=== PATIENT | female | born 1970 | race Caucasian/White ===

== ENCOUNTER → 2022-10-08 | Outpatient (CLI) | payer OTHER ==
--- NOTE | 2022-10-08 20:44 | MR ---
EXAMINATION TYPE: MR knee LT wo con DATE OF EXAM: 10/08/2022 COMPARISON: None HISTORY: Left knee pain & swelling due to trip and fall at work. TECHNIQUE: Multiplanar, multisequence images of the knee is performed without IV contrast. FINDINGS: MEDIAL MENISCUS: Anterior and posterior horns are intact without tear. LATERAL MENISCUS: Anterior and posterior horns are intact without tear. CRUCIATE LIGAMENTS: The anterior and posterior cruciate ligaments are intact and unremarkable. COLLATERAL LIGAMENTS: The medial collateral ligament and lateral collateral ligament complex are inta ct and unremarkable. EXTENSOR MECHANISM: Visualized quadriceps and patellar tendons are intact. EFFUSION: No significant suprapatellar joint effusion. POPLITEAL CYST: No popliteal/berumen cyst. TRICOMPARTMENT SPACES: Mild narrowing medial tibiofemoral joint space. CARTILAGE: Intact BONE MARROW SIGNAL: No focal abnormal marrow signal is appreciated. OTHER: Prepatellar soft tissue swelling. Septated ganglion cyst within the region of Hoffa's fat pad medially measures 1.8 cm in length and 4 mm in craniocaudal dimension IMPRESSION: 1. Complex ganglion cyst within the region of Hoffa's fat pad medially. 2. Prepatellar soft tissue swelling
== END | disposition home or self-care (01) ==
LOC: RADMRIMAIN 19:16
PROVIDERS: ATTEND Orthopaedic Surgery
DX: M67.462 Ganglion, left knee (principal); M25.562 Pain in left knee; M79.89 Other specified soft tissue disorders

== ENCOUNTER → 2022-12-03 | Outpatient (CLI) | payer OTHER ==
[2022-12-03 16:06] LABS: Basophils # (A) 0.02 X 10*3/uL; Basophils % (A) 0.4 %; Eosinophils # (A) 0.13 X 10*3/uL; Eosinophils % (A) 2.3 %; HCT 43.9 %; HGB 13.7 d/dL; Lymphocytes # (A) 2.72 X 10*3/uL; Lymphocytes % (A) 47.7 %; MCH 29.1 pg; MCHC 31.2 d/dL; MCV 93.2 FL; Mean Platelet Volume 10.8 FL; Monocytes # (A) 0.35 X 10*3/uL; Monocytes % (A) 6.1 %; NRBC Per 100 WBC 0 X 10*3/uL; Neutrophils # (A) 2.47 X 10*3/uL; Neutrophils % (A) 43.3 %; Platelet Count 213 X 10*3/uL; RBC 4.71 X 10*6/uL; RDW 14.2 %
== END | disposition home or self-care (01) ==
LOC: LABPAT 07:50
PROVIDERS: ATTEND Orthopaedic Surgery
DX: Z01.818 Encounter for other preprocedural examination (principal); M23.92 Unspecified internal derangement of left knee
CPT/HCPCS: 85025; 93005

== ENCOUNTER 2022-12-13 12:03 | Day surgery (SDC) | payer BC, OTHER ==
[2022-12-11 08:42] VITALS: BMI 31.1
--- NOTE | 2022-12-12 13:48 | HP ---
HISTORY AND PHYSICAL DATE OF SCHEDULED SURGERY: 12/13/2022 HISTORY OF PRESENT ILLNESS: Deepali Ricardo is a 52-year-old patient seen with progressive left knee pain. We discussed options for treatment, post left knee arthroscopy. Consent was obtained. PAST MEDICAL HISTORY: Hyperlipidemia, fvz-syvqtjv-ajdehyide diabetes. PAST SURGICAL HISTORY: Knee arthroscopy, laparoscopy, shoulder arthroscopy. DAILY MEDICATIONS: 1. Metformin. 2. Munjaro. 3. Rosuvastatin. 4. Aleve. ALLERGIES: Jardiance and Lisinopril SOCIAL HISTORY: She denies tobacco use. PHYSICAL EVALUATION OF LEFT KNEE: Range of motion 0 to 120 degrees. Mild effusion. She is tender on the medial and lateral joint line. She has a positive medial Gustabo's and a positive lateral Gustabo's. Ligaments stable. Hip rotation without pain. Distal neurovascular exam is intact. RADIOGRAPHS: Radiographs of the left knee revealed mild osteoarthritis, MRI left knee revealed a ganglion cyst. IMPRESSION: 1. Internal derangement of left knee with meniscal tear versus osteochondral tear. 2. Nit-kboteti-idyhajwwc diabetes. 3. Hyperlipidemia. PLAN: Left knee arthroscopy with partial meniscectomy versus chondroplasty and debridement. MMODL / IJN: [id number] /
[~2022-12-13 12:03] MED LIST: DEXAMETHASONE SOD PHOSPHATE 4 MG/ML 1 ML VIAL IV ONE; HYDROmorphone 0.5 MG/0.5 ML SYRINGE IVP PRN; LACTATED RINGERS 1,000 ML IV SCH; ONDANSETRON 4 MG/2 ML VIAL IVP ONE
[2022-12-13 12:39] LABS: Glucose,Whole Blood 117 mg/dL (70-110)
[2022-12-13] MEDS ORDERED: BUPIVACAINE (PF) 0.25% 30 ML VIAL SQ ONE ×2 (13:45→14:18)
[2022-12-13] MEDS ORDERED: LIDOCAINE 2% INJ 20 MG/ML (2 ML VIAL) ONE (13:47)
[2022-12-13] MEDS ORDERED: KETOROLAC 15 MG/ML 1 ML VIAL ONE (13:47)
[2022-12-13] MEDS ORDERED: PROPOFOL 10 MG/ML 20 ML VIAL IV ONE (13:47)
[2022-12-13] MEDS ORDERED: fentaNYL (PF) 50 MCG/ML 2 ML AMP ONE (13:47)
[2022-12-13] MEDS ORDERED: MIDAZOLAM 2 MG/2 ML VIAL ONE (13:47)
[2022-12-13] MEDS ORDERED: LACTATED RINGERS 1,000 ML IV ONE (14:20)
--- NOTE | 2022-12-13 14:27 | P.OP ---
Date of Procedure: 12/13/22 Preoperative Diagnosis: Internal derangement left knee Postoperative Diagnosis: 1. Tear medial meniscus left knee 2. Reactive synovitis medial, lateral and suprapatellar compartments left knee Procedure(s) Performed: 1. Arthroscopic partial medial meniscectomy left knee 2. Arthroscopic partial synovectomy medial, lateral and suprapatellar compartments left knee Anesthesia: RIMAA, local Surgeon: Slim Redding Estimated Blood Loss (ml): 7 Pathology: none sent Condition: stable Disposition: PACU Indications for Procedure: 52-year-old patient who was seen with progressive left knee pain. We discussed options for treatment, she elected to proceed with arthroscopy. Operative Findings: See description of procedure Description of Procedure: Patient was taken to the operative suite. Patient underwent a general anesth etic by the department of anesthesia. Patient was given preoperative antibiotics. The left lower extremity was placed in a well-padded arthroscopic leg edwards. The left leg was prepped and draped in the normal sterile orthopedic fashion. A lateral parapatellar and suprapatellar incision was made. Trochars were inserted. Arthroscopy was initiated. Suprapatellar pouch revealed diffuse thick reactive synovitis. The patellofemoral joint appeared to articulate congruently. There was grade 1 chondromalacia of the patella without significant osteochondral tears.. The scope was guided into the medial gutter. No loose bodies or plica were identified. The scope was then guided into the medial compartment. A medial parapatellar incision was made. Trocar inserted followed by probe. There was radial tear posterior horn medial meniscus. There were some grade 2 chondromalacia changes along the medial femoral condyle without significant tearing. There was some thick reactive synovitis anteriorly. I performed a partial medial meniscectomy getting down to stable meniscal tissue. I performed a partial synovectomy decompressing the reactive synovitis. The residual meniscus was probed and was found to be stable. There was good decompression of the synovitis. Scope and probe were then guided into the intercondylar notch. Cruciates were identified, probed and found to be stable. The scope and probe were then guided into lateral compartment. Lateral meniscus was probed and was found to be stable. There was no substantial chondromalacia of the lateral compartment. There was some thick reactive synovitis anteriorly. I introduced the motorized shaver and performed a partial synovectomy. Shaver was now removed. There was good decompression of the synovitis. The scope was in guided back into the suprapatellar compartment. I introduced the motorized shaver into the super patellar compartment. I performed a partial synovectomy decompressing the thick reactive synovitis. The shaver was now removed. There was good decompression of the synovitis. I now took one more look around the entire knee, no residual debris. Instruments were now removed from the joint. The joint was infiltrated with .25% Marcaine. Steri-Strips were applied to the portal sites. Sterile dressings were applied. The patient was placed into a KAI hose. No tourniquet was utilized. The patient was awakened, transferred to a bed and taken to recovery stable satisfactory condition.
[2022-12-13 14:29] VITALS: TEMP 97
[2022-12-13 14:53] LABS: Glucose,Whole Blood 138 mg/dL (70-110)
[2022-12-13] MEDS ORDERED: HYDROmorphone 0.5 MG/0.5 ML SYRINGE IVP ONE (14:56)
[2022-12-13] MEDS ORDERED: KETOROLAC 15 MG/ML 1 ML VIAL IVP ONE (14:58)
[2022-12-13 15:19] VITALS: RESP 18
[2022-12-13 15:42] VITALS: BP 122/79; PULSE 85
== END 2022-12-13 16:17 | disposition home or self-care (01) ==
LOC: OR 12:03
PROVIDERS: ATTEND Orthopaedic Surgery
DX: S83.242A Other tear of medial meniscus, current injury, left knee, initial encounter (principal); M65.862 Other synovitis and tenosynovitis, left lower leg; I10 Essential (primary) hypertension; Z79.4 Long term (current) use of insulin; Z79.899 Other long term (current) drug therapy; X58.XXXA Exposure to other specified factors, initial encounter
CPT/HCPCS: 29881; J2250; J1100; J0690; J2405; J3010; J1885; J2704; J1170; J2001

== ENCOUNTER → 2023-11-15 | Outpatient (CLI) | payer BC ==
--- NOTE | 2023-11-16 02:14 | MR ---
EXAMINATION TYPE: MR shoulder LT wo con DATE OF EXAM: 11/15/2023 COMPARISON: MRI left shoulder 2009. Outside left shoulder x-ray November 05, 2023 HISTORY: Left shoulder pain with difficulty raising arm overhead for 6 weeks, history of surgery 2008. TECHNIQUE: Multiplanar, multisequence imaging of the left shoulder is performed without contrast. FINDINGS: Rotator Cuff: Some increased signal in the infraspinatus tendon. More prominent increased signal surr ounding fluid in the supraspinatus tendon. Heterogeneity and increased signal in the subscapularis te ndon. Rotator cuff muscle bulk is preserved. Acromioclavicular Joint: Moderate narrowing at the acromioclavicular joint with mild/moderate capsula r hypertrophy. Subchondral cystic change. Glenohumeral Joint: Small joint effusion extending anteriorly. No significant spurring. Labrum: The labrum appears grossly intact given limitation of non-arthrogram study. Biceps Tendon: The long head of biceps is in normal location within bicipital groove. Bone marrow signal: Significant area of heterogeneous increased T2 signal inferior medial humeral hea d anteriorly over roughly 2.5 cm area. Other: No additional significant abnormality is appreciated. IMPRESSION: 1. Focal abnormal bone marrow edema/osseous contusion injury anterior inferior medial humeral head ab utting the anterior glenoid. 2. Tendinosis/partial tearing of the subscapularis tendon. 3. Mild tendinosis of the infraspinatus tendon. Slightly more prominent tendinosis of the supraspinat us tendon.
== END | disposition home or self-care (01) ==
LOC: RADMRIMAIN 19:01
PROVIDERS: ATTEND Orthopaedic Surgery
DX: M75.112 Incomplete rotator cuff tear or rupture of left shoulder, not specified as traumatic (principal)

== ENCOUNTER 2023-12-19 07:27 | Day surgery (SDC) | payer BC ==
[2023-12-17 12:10] VITALS: BMI 31.2
--- NOTE | 2023-12-18 22:55 | HP ---
HISTORY AND PHYSICAL Surgery is scheduled for 12/19/2023. HISTORY OF PRESENT ILLNESS: Deepali Ricardo is a 53-year-old patient, seen with progressive left shoulder pain. We discussed options regarding treatment. She elected to proceed with arthroscopy. Consent was obtained. PAST MEDICAL HISTORY: Khy-teooegt-knxlahbtv diabetes, gastroesophageal reflux disease, hyperlipidemia. PAST SURGICAL HISTORY: Shoulder arthroscopy, knee arthroscopy, laparoscopy. DAILY MEDICATIONS: 1. Metformin. 2. Rosuvastatin. 3. Naprosyn. 4. Multivitamin. ALLERGIES: Jardiance, lisinopril. SOCIAL HISTORY: She denies tobacco use. PHYSICAL EVALUATION OF THE LEFT SHOULDER: Flexion is 130 degrees. Abduction is 90 degrees. External rotation is 40 degrees with pain and weakness. Tenderness along the anterolateral acromion rotator cuff insertion site. Impingement is positive at 80 degrees. Drop-arm sign is positive. Distal neurovascular exam is intact. IMAGING STUDIES: Radiographs of the left shoulder revealed a type 2 acromion along with acromioclavicular joint osteoarthritis. MRI of left shoulder revealed a partial rotator cuff tendon tear along with acromioclavicular joint osteoarthritis. IMPRESSION: 1. Left shoulder impingement with partial rotator cuff tear. 2. Left shoulder acromioclavicular joint osteoarthritis. 3. Hyperlipidemia. 4. Lfq-hpexfjj-qgopistiy diabetes. PLAN: Left shoulder arthroscopy with subacromial decompression, arthroscopic rotator cuff repair, Twan procedure, and debridement. MMODL / IJN: [id number] /
[~2023-12-19 07:27] MED LIST changes: -DEXAMETHASONE SOD PHOSPHATE 4 MG/ML 1 ML VIAL IV ONE; -LACTATED RINGERS 1,000 ML IV SCH; +LIDOCAINE 1% (10MG/ML) FOR IV START INTRADERMA PRN; -ONDANSETRON 4 MG/2 ML VIAL IVP ONE; +SCOPOLAMINE 1 MG/72 HR PATCH TRANSDERM ONE; +droPERidol 5 MG/2 ML VIAL IVP ONE
[2023-12-19] MEDS: LACTATED RINGERS 1,000 ML IV SCH (08:20)
[2023-12-19] MEDS: DEXAMETHASONE SOD PHOSPHATE 4 MG/ML 1 ML VIAL IV ONE (08:20)
[2023-12-19 08:21] LABS: Glucose,Whole Blood 124 mg/dL (70-110)
[2023-12-19] MEDS: ONDANSETRON 4 MG/2 ML VIAL IVP ONE (08:21)
[2023-12-19] MEDS: IV FLUID CONTINUATION 1,000 ML IV ONE (08:24)
[2023-12-19] MEDS: MIDAZOLAM 2 MG/2 ML VIAL IVP ONE (08:36)
[2023-12-19] MEDS ORDERED: SUCCINYLCHOLINE CHLORIDE 200 MG/10 ML VIAL IV ONE (09:06)
[2023-12-19] MEDS ORDERED: ROCURONIUM 10 MG/ML (5 ML VIAL) IV ONE (09:06)
[2023-12-19] MEDS ORDERED: NEOSTIGMINE 1 MG/ML 10 ML VIAL ONE (09:06)
[2023-12-19] MEDS ORDERED: GLYCOPYRROLATE 0.2 MG/ML 2 ML VIAL ONE (09:06)
[2023-12-19] MEDS ORDERED: LIDOCAINE 1% INJ 10MG/ML (20 ML MDV) ONE (09:06)
[2023-12-19] MEDS ORDERED: PROPOFOL 10 MG/ML 20 ML VIAL IV ONE (09:06)
[2023-12-19] MEDS ORDERED: fentaNYL (PF) 50 MCG/ML 2 ML AMP ONE (09:06)
[2023-12-19] MEDS ORDERED: ROPIVACAINE 5 MG/ML 30 ML VIAL ONE (09:06)
[2023-12-19 10:44] VITALS: TEMP 98.4
--- NOTE | 2023-12-19 10:47 | P.OP ---
Date of Procedure: 12/19/23 Preoperative Diagnosis: Left shoulder impingement Postoperative Diagnosis: 1. Left shoulder rotator cuff tear 2. Left shoulder impingement 3. Left shoulder bicipital tendinitis 4. Left shoulder acromioclavicular joint osteoarthritis 5. Left shoulder superficial labral tear Procedure(s) Performed: 1. Left shoulder arthroscopic rotator cuff repair 2. Left shoulder arthroscopic subacromial decompression 3. Left shoulder arthroscopic biceps tenodesis 4. Left shoulder arthroscopic Twan procedure 5. Left shoulder arthroscopic debridement labral tear Implants: 1Arthrex 5.5 swivel lock anchor 1Arthrex 4.75 swivel lock anchor Anesthesia: GETA, regional (Interscalene block) Surgeon: Slim Redding Certified Nurse Aide #1: Lawrence Mack Estimated Blood Loss (ml): 8 Pathology: none sent Condition: stable Disposition: PACU Indications for Procedure: 53-year-old patient seen with progressive left shoulder pain. After having treatment options discussed, she elected to proceed with arthroscopy. Operative Findings: See description of procedure Description of Procedure: Patient underwent an interscalene block by department of anesthesia. The patient was then taken to the operative suite. The patient underwent a general anesthetic by the department of anesthesia. The patient was placed into a lateral position and secured. There was appropriate padding of the bony prominence. Left shoulder was then prepped and draped in normal sterile orthopedic fashion. We placed the extremity in 10 pounds of longitudinal traction. A posterior incision was now made for a posterior working portal site. The trocar and cannula were inserted into the glenohumeral joint. Arthroscopy was initiated. Spinal needle was now inserted anteriorly, to ascertain the anterior working portal site. An incision was now made in that area, a trocar was inserted followed by a probe. There was hyperemia involving long head biceps tendon with some mild tearing. There was some fraying/tearing of the superior labrum. There was no chondromalacia present. I debrided the superficial fraying of labrum with a motorized shaver. I decided to proceed with arthroscopic biceps tenodesis. I introduced the cannula through the anterior portal site. I passed a loop and tack type stitch to the biceps tendon. I now released the biceps tendon from the superior labral anchor. I now with the assistance of a Herrera Mack PA punch hole at the interval for insertion of an anchor. The suture line was passed through the eyelet of an Arthrex 4.75 swivel lock anchor. I placed the eyelet into the prepunched hole. I held in position while Herrera CHRISTIANSON tensioned the suture and deployed the anchor with good fixation noted. The residual suture limb was now clipped. We had a stable appearing biceps tenodesis. Instruments were now removed from the glenohumeral joint. Utilizing the posterior working portal site, the trocar and cannula were inserted into the subacromial space. Arthroscopy initiated. I made an incision 2 fingerbreadths lateral to the acromion. I introduced my trocar followed by my ArthroCare ablator. I now began ablating thick subacromial bursal tissue, which exposed the undersurface of the anterior acromion. There was diminished subacromial space. There was an acromial spur present.. A motorized bur was introduced and a subacromial decompression was performed. I also excised some osteophytes off the inferior aspect of the distal clavicle. The AC joint was visualized and noted to be fairly arthritic. The motorized bur was introduced in the anterior portal site and a Twan procedure was performed without difficulty removing 8 mm off the distal clavicle, decompressing the AC joint nicely. I turned my attention to the rotator cuff. There was a 1 cm rotator cuff tear. I debrided the margins getting down to stable tendon tissue. I abraded the footprint with a motorized bur. With the assistance of Herrera CHRISTIANSON I passed 2 everted mattress sutures through good bites of rotator cuff tendon. I now punched a hole at the footprint for insertion of an anchor. All 4 limbs of suture were passed through the eyelet of a Arthrex 5.5 swivel lock anchor. I placed the eyelet into our preplanned hole. I held in position while Herrera CHRISTIANSON tensioned the suture and deployed the anchor with good fixation noted. All residual suture limbs were now clipped. We had good compression of the tendon along the entire footprint. Instruments now removed from the portal sites. All portal sites were approximated with nylon suture. Sterile dressings were applied followed by a shoulder sling. Lawrence CHRISTIANSON assisted in all aspects this case. The patient was awakened, transferred to a bed, and taken to recovery in stable condition.
[2023-12-19 11:46] VITALS: RESP 20
[2023-12-19 12:45] VITALS: BP 118/72; PULSE 80
--- NOTE | 2023-12-19 18:08 | P.ANPRN ---
Procedure Note - Anesthesia - Nerve Block Performed Left Interscalene Single Time Out Performed: Yes Date of Procedure: 12/19/23 Procedure Start Time: 08:35 Procedure Stop Time: 08:39 Location of Patient: PreOp Indication: Acute Post-Operative Pain, Requested by Surgeon Sedation Type: Sedate with meaningful contact maintained Preparation: Sterile Prep Position: Supine Needle Types: Pajunk Needle Gauge: 21 Ultrasound used to visualize needle placement: Yes Ultrasound used to observe medication spread: Yes Blood Aspirated: No Pain Paresthesia on Injection Noted: No Resistance on Injection: Normal Image Stored and Saved: Yes Events: Uneventful and Well Tolerated (Ropivacaine 0.5% 20 cc dexamethasone 4 mg)
== END 2023-12-19 12:40 | disposition home or self-care (01) ==
LOC: OR 07:27
PROVIDERS: ATTEND Orthopaedic Surgery
DX: M75.102 Unspecified rotator cuff tear or rupture of left shoulder, not specified as traumatic (principal); S43.432A Superior glenoid labrum lesion of left shoulder, initial encounter; M75.42 Impingement syndrome of left shoulder; M75.22 Bicipital tendinitis, left shoulder; M19.012 Primary osteoarthritis, left shoulder; M25.712 Osteophyte, left shoulder; M77.8 Other enthesopathies, not elsewhere classified; G89.18 Other acute postprocedural pain; E11.69 Type 2 diabetes mellitus with other specified complication; E78.5 Hyperlipidemia, unspecified; J45.30 Mild persistent asthma, uncomplicated; I10 Essential (primary) hypertension; E07.9 Disorder of thyroid, unspecified; K21.9 Gastro-esophageal reflux disease without esophagitis; Z88.8 Allergy status to other drugs, medicaments and biological substances; Z79.84 Long term (current) use of oral hypoglycemic drugs; Z79.85 Long-term (current) use of injectable non-insulin antidiabetic drugs; Z79.899 Other long term (current) drug therapy; Z79.82 Long term (current) use of aspirin; Z79.890 Hormone replacement therapy; Z79.1 Long term (current) use of non-steroidal anti-inflammatories (NSAID); X58.XXXA Exposure to other specified factors, initial encounter
CPT/HCPCS: 64415; 29824; 29826; 29827; 29822; C1713 ×3; J2250; J0330; J1100; J2710; J0690; J2405; J2001; J3010; J2795; J2704

== ENCOUNTER → 2024-09-01 | Outpatient (CLI) | payer BC ==
--- NOTE | 2024-09-01 19:46 | MR ---
EXAMINATION TYPE: MR shoulder LT wo con DATE OF EXAM: 09/01/2024 7:28 PM COMPARISON: 11/15/2023. CLINICAL INDICATION: Female, 54 years old with history of M25.512; PHH, Left shoulder pain and limite d range of motion, history of surgery. TECHNIQUE: Multi planar, multi sequence imaging was performed of the shoulder including: Axial and coronal faustina n density fat-saturated sequences, T2 fat-saturated sagittal sequence, and T1-weighted imaging. No G adolinium was given. Left shoulder pain and limited range of motion, history of surgery. FINDINGS: Supraspinatus/Infraspinatus tendon: High PD signal extending to the posterior supraspinous fibers and anterior infraspinatus fibers measuring 20 x 4 mm particularly along the articular surface and l ikely full-thickness given subacromial fluid. Subscapularis tendon: High PD signal is articular surface tear noted measuring up to 2 mm series 201 image 16. Teres minor tendon: Intact Long head biceps tendon: Intact, appropriately positioned within the bicipital groove. Normal ins ertion at the bicipital anchor. Acromioclavicular joint: Mild to moderate osteoarthrosis. Normal subacromial space. No effusion . Glenohumeral joint: Mild to moderate osteoarthrosis. Normal articular cartilage. No effusion. Glenoid labrum: Degenerative labrum with superior labral tear, within the limits of non arthrogra phic technique. Muscle volume: Normal. Bone marrow: Bony edema in the anterior humeral head seen on prior is no longer visualized Soft tissues: The inferior glenohumeral ligament is some increased PD signal and thickening. Joint/bursal fluid: Trace fluid in the subacromial bursa. IMPRESSION: 1. Suspected full-thickness tear of this posterior supraspinatus and anterior infraspinatus tendons with some fluid in the subacromial space. Findings not seen on prior. 2. Degenerative labrum with superior labral tear 3. Postsurgical changes with mild to moderate acromioclavicular and glenohumeral joint arthropathy. 4. Subscapularis tendinosis with articular surface tear. 5. Mild increased signal within the inferior glenohumeral ligament correlate for adhesive capsulitis . [facility], , 09/01/2024 7:43 PM
== END | disposition home or self-care (01) ==
LOC: RADMRIMAIN 18:39
PROVIDERS: ATTEND Orthopaedic Surgery
DX: M75.122 Complete rotator cuff tear or rupture of left shoulder, not specified as traumatic (principal); M19.012 Primary osteoarthritis, left shoulder; M67.814 Other specified disorders of tendon, left shoulder

== ENCOUNTER → 2024-09-11 | Outpatient (CLI) | payer BC ==
[2024-09-11 14:46] LABS: Basophils # (A) 0.03 X 10*3/uL (0.00-0.10); Basophils % (A) 0.5 %; Eosinophils # (A) 0.07 X 10*3/uL (0.04-0.35); Eosinophils % (A) 1.3 %; HCT 44.8 % (37.2-46.3); HGB 14.1 g/dL (12.0-15.0); Lymphocytes # (A) 2.19 X 10*3/uL (0.90-5.00); Lymphocytes % (A) 39.2 %; MCH 29.1 pg (27.0-32.0); MCHC 31.5 g/dL (32.0-37.0); MCV 92.6 FL (80.0-97.0); Mean Platelet Volume 10.8 FL (9.5-12.2); Monocytes # (A) 0.24 X 10*3/uL (0.20-1.00); Monocytes % (A) 4.3 %; NRBC Per 100 WBC 0 X 10*3/uL (0.00-0.01); Neutrophils # (A) 3.04 X 10*3/uL (1.80-7.70); Neutrophils % (A) 54.5 %; Platelet Count 212 X 10*3/uL (140-440); RBC 4.84 X 10*6/uL (4.10-5.20); RDW 14.2 % (11.5-14.5); WBC 5.58 X 10*3/uL (4.50-10.00)
[2024-09-11 15:22] LABS: Anion Gap 10.2 mmol/L (4.00-12.00); Carbon Dioxide 24.8 mmol/L (21.6-31.8); Potassium 4.2 mmol/L (3.5-5.5)
== END | disposition home or self-care (01) ==
LOC: LABPAT 09:28
PROVIDERS: ATTEND Orthopaedic Surgery
DX: Z01.812 Encounter for preprocedural laboratory examination (principal); M75.42 Impingement syndrome of left shoulder
CPT/HCPCS: 80051; 85025

== ENCOUNTER 2024-10-07 05:33 | Day surgery (SDC) | payer BC ==
[2024-10-05 09:26] VITALS: BMI 28.3
--- NOTE | 2024-10-06 16:23 | HP ---
HISTORY AND PHYSICAL DATE OF SURGERY: 10/07/2024. HISTORY OF PRESENT ILLNESS: Deepali Ricardo is a 54-year-old patient seen with progressive left shoulder pain. We discussed options regarding treatment. She elected to proceed with left shoulder arthroscopy. Consent was obtained. PAST MEDICAL HISTORY: Ktx-prsxlgr-dvfsfwjpa diabetes, hypertension, hyperlipidemia. PAST SURGICAL HISTORY: Knee arthroscopy, shoulder arthroscopy, laparoscopy. DAILY MEDICATIONS: 1. Metformin. 2. Mounjaro. 3. Rosuvastatin. 4. Aspirin. 5. Naprosyn. ALLERGIES: Jardiance, lisinopril. SOCIAL HISTORY: She denies tobacco use. PHYSICAL EVALUATION OF THE LEFT SHOULDER: She has well-healed previous arthroscopic portal sites. Flexion is 120 degrees. Abduction is 100 degrees. External rotation is 40 degrees. Tenderness along the anterolateral acromion and rotator cuff insertion site. Impingement is positive at 90 degrees. Drop-arm sign is positive. Distal neurovascular exam is intact. IMAGING STUDIES: Radiographs of the left shoulder, stable conversion to flat acromion. MRI of left shoulder, rotator cuff tear, labral tear, osteoarthritic changes. IMPRESSION: 1. Left shoulder impingement with rotator cuff tear. 2. Left shoulder labral tear. PLAN: Left shoulder arthroscopy with rotator cuff repair and debridement of labral tear. MMODL / IJN: [id number] /
[2024-10-07] MEDS: IV FLUID CONTINUATION 1,000 ML IV ONE (06:08)
[2024-10-07] MEDS: LACTATED RINGERS 1,000 ML IV ONE (06:08)
[2024-10-07 06:39] LABS: Glucose,Whole Blood 112 mg/dL (70-110)
[2024-10-07] MEDS: ONDANSETRON 4 MG/2 ML VIAL IVP ONE (06:41)
[2024-10-07] MEDS: DEXAMETHASONE SOD PHOSPHATE 4 MG/ML 1 ML VIAL IVP ONE (06:41)
[2024-10-07] MEDS: MIDAZOLAM 2 MG/2 ML VIAL IVP ONE (06:45)
[2024-10-07] MEDS: fentaNYL (PF) 50 MCG/ML 2 ML AMP IVP ONE (06:45)
[2024-10-07] MEDS ORDERED: PROPOFOL 10 MG/ML 20 ML VIAL IV ONE (07:24)
[2024-10-07] MEDS ORDERED: ROPIVACAINE 5 MG/ML 30 ML VIAL ONE (07:24)
[2024-10-07] MEDS ORDERED: fentaNYL (PF) 50 MCG/ML 2 ML AMP ONE (07:24)
[2024-10-07] MEDS ORDERED: SUCCINYLCHOLINE CHLORIDE 200 MG/10 ML VIAL IV ONE (07:24)
[2024-10-07] MEDS ORDERED: LIDOCAINE 1% INJ 10MG/ML (20 ML MDV) ONE (07:24)
[2024-10-07] MEDS ORDERED: DEXAMETHASONE SOD PHOSPHATE 4 MG/ML 1 ML VIAL ONE (07:24)
[2024-10-07] MEDS ORDERED: MIDAZOLAM 2 MG/2 ML VIAL ONE (07:24)
[2024-10-07] MEDS ORDERED: GLYCOPYRROLATE 0.2 MG/ML 2 ML VIAL ONE (07:24)
[2024-10-07] MEDS ORDERED: NEOSTIGMINE 1 MG/ML 10 ML VIAL ONE (07:24)
[2024-10-07] MEDS ORDERED: ROCURONIUM 10 MG/ML (5 ML VIAL) IV ONE (07:24)
[2024-10-07] MEDS: ceFAZolin 2 GM in DEXTROSE 5% IN WATER 50 ML IVPB PRN (07:28)
--- NOTE | 2024-10-07 07:54 | P.ANPRN ---
Procedure Note - Anesthesia - Nerve Block Performed Left Interscalene Single Time Out Performed: Yes Date of Procedure: 10/07/24 Procedure Start Time: 06:44 Procedure Stop Time: 06:52 Location of Patient: PreOp Indication: Acute Post-Operative Pain, Requested by Surgeon Sedation Type: Sedate with meaningful contact maintained Preparation: Sterile Prep Position: Sitting Catheter: None Needle Types: On-Q Needle Gauge: 20 Ultrasound used to visualize needle placement: Yes Ultrasound used to observe medication spread: Yes Injectate: 0.5% Ropivacaine (see comment for volume) (30 ml + decadron 4 mg) Blood Aspirated: No Pain Paresthesia on Injection Noted: No Resistance on Injection: Normal Image Stored and Saved: Yes Events: Uneventful and Well Tolerated
--- NOTE | 2024-10-07 09:08 | P.OP ---
Date of Procedure: 10/07/24 Preoperative Diagnosis: Left shoulder impingement Postoperative Diagnosis: 1. Left shoulder rotator cuff tear 2. Left shoulder impingement 3. Left shoulder superficial labral tear Procedure(s) Performed: 1. Left shoulder arthroscopic rotator cuff repair 2. Left shoulder arthroscopic subacromial decompression 3. Left shoulder arthroscopic debridement labral tear Implants: 1Arthrex 4.75 swivel lock anchor Anesthesia: GETA, regional (Interscalene block) Surgeon: Slim Redding Computer Field Technician #1: Lawrence Mack Estimated Blood Loss (ml): 7 Pathology: none sent Condition: stable Disposition: PACU Indications for Procedure: 54-year-old patient seen with progressive left shoulder pain, after having treatment options discussed she elected to proceed with arthroscopy. Operative Findings: See description of procedure Description of Procedure: Patient underwent an interscalene block by department of anesthesia. The patient was then taken to the operative suite. The patient underwent a general anesthetic by the department of anesthesia. The patient was placed into a lateral position and secured. There was appropriate padding of the bony prominence. Left shoulder was then prepped and draped in normal sterile orthopedic fashion. We placed the extremity in 10 pounds of longitudinal traction. A posterior incision was now made for a posterior working portal site. The trocar and cannula were inserted into the glenohumeral joint. Arthroscopy was initiated. Spinal needle was now inserted anteriorly, to ascertain the anterior working portal site. An incision was now made in that area, a trocar was inserted followed by a probe. There was some mild superficial tearing of the superior labrum. The biceps was absent consistent with previous tenodesis. There was some early grade I chondromalacia present without significant tears. I had used a motorized shaver and debrided out that superficial labral tear. The residual labrum was stable. Instruments were now removed from the glenohumeral joint. Utilizing the posterior working portal site, the trocar and cannula were inserted into the subacromial space. Arthroscopy initiated. I made an incision 2 fingerbreadths lateral to the acromion. I introduced my trocar followed by my ArthroCare ablator. I now began ablating thick subacromial bursal tissue, which exposed the undersurface of the anterior acromion. There was a small residual spur present along the anterior lateral acromion. I introduced a motorized shaver and performed a decompression. There was an adequate decompression. The AC joint was visualized and there was evidence for previous Twan procedure was stable acromioclavicular joint present. I turned my attention to the rotator cuff tendon. Upon probing the tendon I found a full-thickness perforation along the distal supraspinatus area. I debrided the margins getting down to stable tissue. I abraded the footprint with a motorized bur. There was a 1 cm defect in the tendon/1 cm tear. It was freely mobile over the footprint. With the assistance of Herrera CHRISTIANSON passed 2 everted mattress sutures through good bites of rotator cuff tendon. I punched a hole in the footprint area for insertion of an anchor. All 4 limbs of suture were passed through the eyelet of an arc six 4.75 swivel lock anchor. I placed the eyelet into the prepunched hole, held in position while Herrera CHRISTIANSON tensioned all 4 limbs of suture and deployed the anchor with good fixation noted. All residual suture limbs were now clipped. We had good compression of the tendon along the entire footprint. Instruments now removed from the portal sites. All portal sites were approximated with nylon suture. Sterile dressings were applied followed by a shoulder immobilizer. Lawrence CHRISTIANSON assisted in all aspects of this case. The patient was awakened, transferred to a bed, and taken to recovery in stable condition.
[2024-10-07 09:32] VITALS: TEMP 97.1
[2024-10-07 10:15] VITALS: PULSE 78; RESP 16
[2024-10-07 10:45] VITALS: BP 117/62
== END 2024-10-07 11:12 | disposition home or self-care (01) ==
LOC: OR 05:33
PROVIDERS: ATTEND Orthopaedic Surgery
DX: M75.122 Complete rotator cuff tear or rupture of left shoulder, not specified as traumatic (principal); M25.812 Other specified joint disorders, left shoulder; S43.492A Other sprain of left shoulder joint, initial encounter; E11.9 Type 2 diabetes mellitus without complications; E78.5 Hyperlipidemia, unspecified; I10 Essential (primary) hypertension; G89.18 Other acute postprocedural pain; Z79.84 Long term (current) use of oral hypoglycemic drugs; Z88.8 Allergy status to other drugs, medicaments and biological substances
CPT/HCPCS: 64415; 29827; 29822; C1713 ×2; J2250; J0330; J1100; J2710; J0690; J2405; J2003; J3010; J2795; J2704; J1596